=== PATIENT | female | born 1995 | race African-American/Black ===

== ENCOUNTER 2019-10-09 19:30 | Emergency (ER) | payer OTHER ==
[~2019-10-09] VITALS: Ht 162.6 cm; Wt 75.3 kg
[2019-10-09 22:12] VITALS: BP 121/80
[2019-10-09 22:18] LABS: URINE BILIRUBIN NEGATIVE (Negative); URINE BLOOD NEGATIVE (Negative); URINE CLARITY CLEAR; URINE COLOR YELLOW; URINE GLUCOSE-RANDOM* NEGATIVE (Negative); URINE KETONES NEGATIVE (Negative); URINE LEUKOCYTES-REFLEX NEGATIVE (Negative); URINE NITRITE-REFLEX NEGATIVE (Negative); URINE PROTEIN (DIPSTICK) NEGATIVE (Negative); URINE UROBILINOGEN 0.2 E.U./dl (0.2-1.0)
--- NOTE | 2019-10-11 19:50 | NUR ---
LEFT VOICEMAIL ON SIGNIFICANT OTHERS' VOICEMAIL FOR A RETURN CALL FROM PATIENT. PATIENT RETURNED PHONE CALL FROM [phone]. PATIENT WAS GIVEN RESULTS OF POSITIVE COVID-19 TEST.
== END 2019-10-09 22:12 | disposition home or self-care (01) ==
LOC: ER 19:30
PROVIDERS: Emergency Medicine
DX: U07.1 COVID-19 (principal); J22 Unspecified acute lower respiratory infection; R50.9 Fever, unspecified